=== PATIENT | male | born 1980 | race Caucasian/White ===

== ENCOUNTER 2018-03-15 12:59 | Inpatient (IN) | END 2018-03-16 17:00 | disposition home or self-care (01) | DRG 690 ==

== ENCOUNTER 2019-01-21 13:09 | Emergency (ER) | payer BC ==
[~2019-01-21] VITALS: Ht 170.2 cm; Wt 87.7 kg
[~2019-01-21 13:09] MED LIST: LEVO750T8 PO
[2019-01-21 13:13] VITALS: BP 127/76; PULSE 63; RESP 18; Ht 170.2 cm; Wt 87.7 kg
[2019-01-21] MEDS ORDERED: ACET-141 PO (15:48)
[2019-01-21] MEDS ORDERED: LEVO500T10 PO (15:48)
--- NOTE | 2019-01-21 15:51 | ERD ---
ER Documentation Chief Complaint Chief Complaint left testicle swelling x 3 days ROS All systems reviewed and are negative except as per history of present illness. Medications Home Meds Active Scripts Acetaminophen* (Acetaminophen*) 500 MG Extra Strength Tablet, 500 MG PO Q4H PRN for PAIN AND OR ELEVATED TEMP, #30 TAB Prov:FANTASMA ORELLANA DO 01/21/19 Levofloxacin* (Levofloxacin*) 500 Mg Tablet, 500 MG PO DAILY for testicular infection for 10 Days, #10 TAB Prov:FANTASMA ORELLANA DO 01/21/19 Levofloxacin* (Levofloxacin*) 750 Mg Tablet, 750 MG PO DAILY for 5 Days, #5 TAB Prov:ELSY FAUSTIN S. 03/16/18 Allergies Allergies: Coded Allergies: No Known Allergy (Unverified , 03/15/18) PMhx/Soc History of Surgery: No Anesthesia Reaction: No Hx Neurological Disorder: No Hx Respiratory Disorders: No Hx Cardiac Disorders: No Hx Psychiatric Problems: No Hx Miscellaneous Medical Probl: Yes (Kidney stones) Hx Alcohol Use: No Hx Substance Use: No Hx Tobacco Use: No Smoking Status: Never smoker Physical Exam Vitals Vital Signs Date Temp Pulse Resp B/P (MAP) Pulse Ox O2 O2 Flow FiO2 Time Delivery Rate 01/21/19 97.9 63 18 127/76 97 13:13 (93) Physical Exam Const: No acute distress Head: Atraumatic Eyes: Normal Conjunctiva ENT: Normal External Ears, Nose and Mouth. Neck: Full range of motion. No meningismus. Resp: Clear to auscultation bilaterally Cardio: Regular rate and rhythm, no murmurs Abd: Soft, non tender, non distended. Normal bowel sounds Skin: No petechiae or rashes Back: No midline or flank tenderness Ext: No cyanosis, or edema Neur: Awake and alert Psych: Normal Mood and Affect Results 24 hrs Laboratory Tests Test 01/21/19 14:06 Urine Color YELLOW Urine Clarity CLEAR Urine pH 5.0 Urine Specific [place] 1.023 Urine Ketones NEGATIVE mg/dL Urine Nitrite NEGATIVE mg/dL Urine Bilirubin NEGATIVE mg/dL Urine Urobilinogen NEGATIVE mg/dL Urine Leukocyte Esterase NEGATIVE Nanette/ul Urine Hemoglobin NEGATIVE mg/dL Urine Glucose NEGATIVE mg/dL Urine Total Protein NEGATIVE mg/dl Departure Diagnosis: Primary Impression: Testicular swelling Condition: Fair Patient Instructions: Epididymitis, Varicocele Additional Instructions: Call your primary care doctor TOMORROW for an appointment during the next 1-2 days.See the doctor sooner or return here if your condition worsens before your appointment time. FANTASMA ORELLANA DO Jan 21, 2019 15:50
== END 2019-01-21 16:00 | disposition home or self-care (01) ==
LOC: FTE 13:09
DX: N50.89 Other specified disorders of the male genital organs (principal)
CPT/HCPCS: 76870; 81003

== ENCOUNTER 2019-03-17 23:27 | Emergency (ER) | payer BC ==
[~2019-03-17] VITALS: Ht 167.6 cm; Wt 87.8 kg
[~2019-03-17 23:27] MED LIST changes: +ACET-141 PO; +CEFT1FRO2 IV; +CEPH-443 PO; +IBUP-1542 PO; +LEVO500T10 PO
[2019-03-17 23:31] VITALS: Ht 167.6 cm; Wt 87.8 kg
[2019-03-17] MEDS ORDERED: SODIUM CHLORIDE 0.9% 1L BAG IV* STA (23:35)
[2019-03-17] MEDS ORDERED: CEFTRIAXONE 1 GM/50 ML (PMX) 50 ML IVPB STA (23:35)
[2019-03-18] MEDS ORDERED: KETOROLAC 30 MG INJ IV STA (00:33)
[2019-03-18] MEDS ORDERED: ACETAMINOPHEN 325 MG TAB PO STA (00:33)
--- NOTE | 2019-03-18 00:56 | ERD ---
ER Documentation Chief Complaint Chief Complaint R flank pain,dysuria,hx kidney stones HPI This is a 38-year-old male who presents for evaluation of right flank pain and dysuria for the last day. He had a similar episode in the past, where he had pyelonephritis secondary to kidney stone. He endorses some nausea, no vomiting, he has no chest pain or shortness of breath. Symptoms are constant, he has not taken any medications today. He denies any other medical problems. ROS All systems reviewed and are negative except as per history of present illness. Medications Home Meds Active Scripts Acetaminophen* (Acetaminophen*) 500 MG Extra Strength Tablet, 500 MG PO Q4H PRN for PAIN AND OR ELEVATED TEMP, #30 TAB Prov:FANTASMA ORELLANA DO 01/21/19 Levofloxacin* (Levofloxacin*) 500 Mg Tablet, 500 MG PO DAILY for testicular infection for 10 Days, #10 TAB Prov:FANTASMA ORELLANA DO 01/21/19 Levofloxacin* (Levofloxacin*) 750 Mg Tablet, 750 MG PO DAILY for 5 Days, #5 TAB Prov:ELSY FAUSTIN 03/16/18 Allergies Allergies: Coded Allergies: No Known Allergy (Unverified , 03/15/18) PMhx/Soc History of Surgery: No Anesthesia Reaction: No Hx Neurological Disorder: No Hx Respiratory Disorders: No Hx Cardiac Disorders: No Hx Psychiatric Problems: No Hx Miscellaneous Medical Probl: Yes (Kidney stones, pyelonephritis) Hx Alcohol Use: No Hx Substance Use: No Hx Tobacco Use: No Smoking Status: Never smoker Physical Exam Vitals Vital Signs Date Temp Pulse Resp B/P (MAP) Pulse Ox O2 O2 Flow FiO2 Time Delivery Rate 03/18/19 102.1 00:40 03/18/19 101.5 102 18 124/85 96 00:00 (98) 03/17/19 101.5 112 18 138/80 96 23:31 (99) Physical Exam Const: No acute distress Head: Atraumatic Eyes: Normal Conjunctiva ENT: Normal External Ears, Nose and Mouth. Neck: Full range of motion. No meningismus. Resp: Clear to auscultation bilaterally Cardio: Regular rate and rhythm, no murmurs Abd: Soft, non tender, non distended, no rebound or guarding. Normal bowel s ounds Skin: No petechiae or rashes Back: No midline or flank tenderness Ext: No cyanosis, or edema Neur: Awake and alert Psych: Normal Mood and Affect Result Diagram: 03/17/19 2344 03/17/19 2344 Results 24 hrs Laboratory Tests Test 03/17/19 23:44 03/17/19 23:45 White Blood Count 14.7 10^3/ul Red Blood Count 5.10 10^6/ul Hemoglobin 14.8 g/dl Hematocrit 43.5 % Mean Corpuscular Volume 85.3 fl Mean Corpuscular Hemoglobin 29.0 pg Mean Corpuscular Hemoglobin Concent 34.0 g/dl Red Cell Distribution Width 12.7 % Platelet Count 194 10^3/UL Mean Platelet Volume 11.5 fl Immature Granulocytes % 0.500 % Neutrophils % 84.6 % Lymphocytes % 8.6 % Monocytes % 6.0 % Eosinophils % 0.1 % Basophils % 0.2 % Nucleated Red Blood Cells % 0.0 /100WBC Immature Granulocytes # 0.070 10^3/ul Neutrophils # 12.5 10^3/ul Lymphocytes # 1.3 10^3/ul Monocytes # 0.9 10^3/ul Eosinophils # 0.0 10^3/ul Basophils # 0.0 10^3/ul Nucleated Red Blood Cells # 0.0 10^3/ul Prothrombin Time 14.3 Sec Prothrombin Time Ratio 1.1 INR International Normalized Ratio 1.10 Activated Partial Thromboplast Time 35.5 Sec Sodium Level 136 mmol/L Potassium Level 3.6 mmol/L Chloride Level 103 mmol/L Carbon Dioxide Level 23 mmol/L Anion Gap 10 Blood Urea Nitrogen 10 mg/dl Creatinine 0.97 mg/dl Est Glomerular Filtrat Rate mL/min > 60 mL/min Glucose Level 143 mg/dl POC Venous Lactate 1.1 mmol/L Calcium Level 9.3 mg/dl Total Bilirubin 1.9 mg/dl Direct Bilirubin 0.00 mg/dl Indirect Bilirubin 1.9 mg/dl Aspartate Amino Transf (AST/SGOT) 26 IU/L Alanine Aminotransferase (ALT/SGPT) 45 IU/L Alkaline Phosphatase 78 IU/L Troponin I < 0.012 ng/ml Total Protein 8.1 g/dl Albumin 4.5 g/dl Globulin 3.60 g/dl Albumin/Globulin Ratio 1.25 Urine Color YELLOW Urine Clarity CLEAR Urine pH 7.0 Urine Specific [place] 1.004 Urine Ketones TRACE mg/dL Urine Nitrite NEGATIVE mg/dL Urine Bilirubin NEGATIVE mg/dL Urine Urobilinogen NEGATIVE mg/dL Urine Leukocyte Esterase NEGATIVE Nanette/ul Urine Microscopic RBC 2 /HPF Urine Microscopic WBC 18 /HPF Urine Hemoglobin 1+ mg/dL Urine Glucose NEGATIVE mg/dL Urine Total Protein NEGATIVE mg/dl Current Medications Medications Dose Sig/Radames Start Time Status Last (Trade) Ordered Route PRN Stop Time Admin Dose Reason Admin Sodium 2,630 ml BOLUS OVER 2 03/17/19 DC 03/17/19 Chloride HOURS STAT 23:35 23:54 (NS) IV* 03/17/19 23:37 Ceftriaxone 50 ml @ ONCE STAT 03/17/19 DC 03/17/19 Sodium 100 mls/hr IVPB 23:35 23:58 03/18/19 00:04 650 mg ONCE STAT 03/18/19 DC 03/18/19 Acetaminophen PO 00:33 00:40 (Tylenol 03/18/19 00:34 Tab) Ketorolac 30 mg ONCE STAT 03/18/19 DC 03/18/19 Tromethamine IV 00:33 00:40 (Toradol) 03/18/19 00:35 Procedures/MDM Is a 38-year-old male who presents for evaluation of flank pain and fever. Code sepsis was called initially given and fever flank pain and likely source. His urinalysis was positive for infection, his CT showed a small renal calculi. The patient experienced significant improvement in the symptoms, he was given subtraction IV fluids, his lactate was negative. Given that he has no comorbidities, has a small kidney stone that will likely pass, and has no evidence of endorgan damage, shared decision-making was made to treat as an outpatient. Patient will be started on Keflex, at discharge he was in no distress Departure Diagnosis: Primary Impression: Flank pain Additional Impressions: Pyelonephritis Fever Fever type: unspecified Qualified Codes: R50.9 - Fever, unspecified Kidney stone Condition: CARIDAD West MD Mar 18, 2019 00:56
[2019-03-18 01:57] VITALS: BP 118/64; PULSE 95; RESP 20
== END 2019-03-18 01:57 | disposition home or self-care (01) ==
LOC: E/R 23:27
DX: N20.0 Calculus of kidney (principal)
CPT/HCPCS: 36415; 71045; 74176; 80053; 81001; 83605; 84484; 85025; 85610; 85730; 87040; 87086; 93005; 96374; 96375; 99285; J0696; J1885; J7030

== ENCOUNTER 2019-03-19 19:19 | Inpatient (IN) | payer BC ==
[~2019-03-19] VITALS: Ht 167.6 cm; Wt 88.7 kg
[2019-03-19] MEDS ORDERED: KETOROLAC 30 MG INJ IV STA (19:27)
[2019-03-19] MEDS ORDERED: ACETAMINOPHEN 325 MG TAB PO STA (19:27)
[2019-03-19] MEDS ORDERED: CEFTRIAXONE 1 GM/50 ML (PMX) 50 ML IVPB STA (19:27)
[2019-03-19] MEDS ORDERED: SODIUM CHLORIDE 0.9% 1L BAG IV* STA (19:27)
[2019-03-19] MEDS ORDERED: SOD CHLORIDE 0.9% 100 ML ONE (19:52)
[2019-03-19] MEDS ORDERED: IOHEXOL 300MG/ML 150 ML BTL ONE (19:52)
[2019-03-19] MEDS ORDERED: morphine 2 MG INJ IV PRN (21:30)
[2019-03-19] MEDS ORDERED: NACL 0.9% 3 ML SYG IV SCH (21:30)
[2019-03-19] MEDS ORDERED: DOCUSATE SODIUM 100 MG CAP PO PRN (21:30)
[2019-03-19] MEDS ORDERED: ONDANSETRON 4 MG INJ IV PRN ×2 (21:30)
[2019-03-19] MEDS ORDERED: ACETAMINOPHEN 325 MG TAB PO PRN (21:30)
[2019-03-19] MEDS ORDERED: HYDROCODONE/APAP (5/325) TAB PO PRN (21:30)
[2019-03-19] MEDS: CEFTRIAXONE 1 GM/50 ML (PMX) 50 ML IVPB SCH (22:35)
[2019-03-19 23:30] VITALS: BP 119/72; PULSE 76; RESP 20
[2019-03-20 00:27] VITALS: Ht 167.6 cm; Wt 88.7 kg
[2019-03-20] MEDS: SOD CHLORIDE 0.9% 1,000 ML IV SCH ×3 (00:47→13:00)
[2019-03-20] MEDS: PANTOPRAZOLE (EC) 40 MG TAB PO SCH (06:58)
[2019-03-20] MEDS: ACETAMINOPHEN 325 MG TAB PO PRN (06:58)
[2019-03-20 08:06] VITALS: BP 117/71; PULSE 82; RESP 20
[2019-03-20] MEDS: ENOXAPARIN 40 MG/0.4 ML SYG SC SCH (09:05)
[2019-03-20 15:11] VITALS: BP 115/67; PULSE 83; RESP 18
[2019-03-20 18:39] VITALS: BP 122/68; PULSE 90; RESP 18
[2019-03-20 20:15] VITALS: BP 140/81; PULSE 94; RESP 18
[2019-03-20] MEDS: CEFTRIAXONE 1 GM/50 ML (PMX) 50 ML IVPB SCH (21:56)
[2019-03-21] VITALS: BP 107/67; PULSE 71; RESP 18
[2019-03-21] MEDS: SOD CHLORIDE 0.9% 1,000 ML IV SCH ×2 (00:18→10:55)
[2019-03-21] MEDS: PANTOPRAZOLE (EC) 40 MG TAB PO SCH (06:06)
[2019-03-21 07:41] VITALS: BP 124/80; PULSE 70; RESP 17
[2019-03-21] MEDS: ENOXAPARIN 40 MG/0.4 ML SYG SC SCH (08:57)
[2019-03-21] MEDS: ACETAMINOPHEN 325 MG TAB PO PRN (09:03)
[2019-03-21 14:26] VITALS: BP 111/72; PULSE 64; RESP 18
[2019-03-21 20:10] VITALS: BP 128/81; PULSE 61; RESP 19
[2019-03-21] MEDS: CEFTRIAXONE 1 GM/50 ML (PMX) 50 ML IVPB SCH (20:55)
[2019-03-22 02:56] VITALS: BP 113/75; PULSE 59; RESP 18
[2019-03-22] MEDS: PANTOPRAZOLE (EC) 40 MG TAB PO SCH (05:27)
[2019-03-22 07:31] VITALS: BP 119/75; PULSE 62; RESP 18
[2019-03-22] MEDS: ENOXAPARIN 40 MG/0.4 ML SYG SC SCH (08:32)
[2019-03-22 13:59] VITALS: BP 130/77; PULSE 78; RESP 18
[2019-03-22] MEDS: CEFTRIAXONE 1 GM/50 ML (PMX) 50 ML IVPB SCH (17:05)
== END 2019-03-22 19:40 | disposition home health service (06) | DRG 690 ==
LOC: E/R 19:19 → MS1 21:06
PROVIDERS: ADMIT Internal Medicine; ATTEND Internal Medicine
DX: N10 Acute pyelonephritis (principal); N41.0 Acute prostatitis; M51.26 Other intervertebral disc displacement, lumbar region; N20.0 Calculus of kidney
CPT/HCPCS: 36573; 74177; 80053; 80061; 81001; 83036; 83605; 83735; 84100; 84153; 84154; 84443; 85025; 85610; 85730; 87086; 93005; 96374; 96375; J0696; J1650; J1885; J7030; Q9967